=== PATIENT | female | born 2000 | race Caucasian/White ===

== ENCOUNTER 2022-03-23 12:32 | Emergency (ER) | payer OTHER, SELFPAY ==
[2022-03-23 13:29] VITALS: BP 116/90; PULSE 82; RESP 16; TEMP 36.1; O2SAT 100
--- NOTE | 2022-03-23 14:09 | ED.FEMALEGU ---
HPI - Female Genitourinary General Chief complaint: Urogenital-Female Stated complaint: Possible UTI Time Seen by Provider: 03/23/22 14:10 Source: patient and RN notes reviewed Mode of arrival: ambulatory Limitations: no limitations History of Present Illness HPI Narrative: 22-year-old female presented for complaints of burning with urination for 2 days. She endorses concern for UTI. She denies hematuria, urinary frequency, urgency, abdominal pain, flank pain, nausea, vomiting, diarrhea, fevers or chills. She has not taken anything for symptoms. She is not sexually active. LMP current. Related Data Home Medications Medication Instructions Recorded Confirmed omeprazole 20 mg capsule,delayed 20 mg PO DAILY 03/23/22 03/23/22 release Allergies Allergy/AdvReac Type Severity Reaction Status Date / Time No Known Allergies Allergy Verified 03/23/22 13:28 Review of Systems Review of Systems: ROS per HPI PMFSH Comments At time of signature, I have reviewed and agree with nursing past medical, surgical, social and family history unless otherwise noted. Please see nursing chart for further information. There is no relevant family history pertinent to the presenting complaint Exam Narrative: GENERAL: Well-appearing CHEST: No respiratory distress. Clear to auscultation. HEART: Regular rate and rhythm. ABDOMEN: Soft, nontender, nondistended, normal active bowel sounds. No CVA tenderness MUSCULOSKELETAL: No bony tenderness. SKIN: Warm, dry, no rash. NEURO: Alert and oriented x3. PSYCH: Normal affect. Course Course Emergency Course: Patient is aware of diagnosis, understands and agrees to treatment plan. Anticipatory guidance given. Patient agrees to follow-up as directed and is aware of reasons to seek care at the emergency department. Portions of this record may have been created with voice recognition software Level of Care: Express Care Visit Vital Signs Vital signs: Vital Signs Temperature 97.0 F L 03/23/22 13:29 Pulse Rate 82 03/23/22 13:29 Respiratory Rate 16 03/23/22 13:29 Blood Pressure 116/90 03/23/22 13:29 Pulse Oximetry 100 03/23/22 13:29 Oxygen Delivery Room Air 03/23/22 13:29 Temperature 97.0 F L 03/23/22 13:29 Pulse Rate 82 03/23/22 13:29 Respiratory Rate 16 03/23/22 13:29 Blood Pressure 116/90 03/23/22 13:29 Pulse Oximetry 100 03/23/22 13:29 Oxygen Delivery Room Air 03/23/22 13:29 Reviewed MDM - Female Genitourinary MDM Narrative Medical decision making narrative: Will send urine for culture. Advised supportive measures and signs/symptoms to go to the ER. Pt is appropriate for outpt treatment and f/u. Lab Data Labs: Urine Glucose Negative Reference Range: Negative Urine Bilirubin Negative Reference Range: Negative Urine Ketone Negative Reference Range: Negative Urine Specific [place] 1.015 Reference Range:1.001-1.035 Urine Blood 3+ Reference Range: Negative * * Urine pH 6.0 Reference Range: 5.0-9.0 Urine Protein Negative Reference Range: Negative Urine Urobilinogen 0.2 Reference Range: 0.2-1.0 Urine Nitrate Negative Reference Range: Negative Urine Leukocyte Trace Reference Range: N
== END 2022-03-23 14:20 | disposition home or self-care (01) ==
PROVIDERS: Emergency Provider Nurse Practitioner Family
DX: N39.0 Urinary tract infection, site not specified (principal)
CPT/HCPCS: 81003; 87086; 99213; G0463